=== PATIENT | female | born 1950 ===

== ENCOUNTER → 2023-07-06 10:54 | Outpatient (POV) | payer MEDICARE, OTHER, SELFPAY ==
--- NOTE | 2023-07-06 12:08 | EXP.PAIN.OV ---
HPI Data of Consult Patient: new to practice Consult date: 07/06/23 Requesting Physician: Mahi Haney APRN Primary Care Provider: Geraldo Lai APRN Consult Narrative Reason for consult: Acute shingles outbreak right lower abdomen and right flank History of present illness: Ms. Bull is a 73 year old female who presents today as a new patient. She is a referral from Geraldo Carranza's office. Today she rates her pain a 8 out of 10. Patient states her pain is all in and around her lower abdomen with radiating symptoms going around to her right flank. Patient states that she does have a current rash and did get diagnosed with shingles last . Patient states that she did have a burning sensation for a few days prior to the rash popping up. Patient states that she did see her primary care provider and they did prescribe her acyclovir along with prednisone. Patient states that she is finishing up the prednisone prescription and that she continues to have a burning/sharp sensation in and around where her rash is. She states it is sensitive to touch and that frequently clothing aggravates it. Patient does state the pain is interfering with her ability perform activities of daily living such as cooking and cleaning. Patient does also states she has a history of cancer and that currently they have seen a spot on her kidney and lung that they are monitoring. Her Carlos has been reviewed and is appropriate. CC: Mahi Haney APRN [facility] Disclaimer: The information contained in this section may have been updated after the patient was seen, as this information can be updated by other users. Social History Smoking Status: Unknown if ever smoked alcohol intake: never current occupational status: retired and other Travel in the last 8 weeks: None Review of Systems Review of Systems Review of systems:: pertinent systems reviewed and negative unless documented below Review of systems (narrative): Review of Systems: General: No recent weight changes, no fever, no sleep disturbances Respiratory: No cough, no shortness of air, no recurring pulmonary infections Cardiovascular/peripheral vascular: No chest pain, no palpitations, no edema, no shortness of breath Gastrointestinal: No new onset incontinence, normal bowel movements reported Genitourinary: No new onset incontinence Musculoskeletal: Right lower abdomen/right flank pain Neurological: [Denies weakness in extremities], [denies balance issues] Meds Home Medications and Allergies New Prescriptions to Start Prescriptions: Objective Narrative: Physical Exam: General: Alert and oriented x3, no acute distress, pleasant and cooperative Lungs: Respirations even and unlabored, symmetrical chest expansion Eyes: PERRL Musculoskeletal: Flexion and extension of lumbar [spine] somewhat guarded secondary to pain, [antalgic gait noted] diffuse rash noted at lower right abdomen and spreading across dermatome to right flank, tenderness with palpation Neurological: Speech clear, no gross sensory deficit Assessment and Plan *Assessment and plan (1) Acute pain associated with herpes zoster: Status: Acute Category: Medical Code(s): B02.9 - Zoster without complications Plan Patient is experiencing an acute shingles outbreak across her lower right abdomen and into her right flank with diffuse rash noted during today's exam. Patient did have tenderness upon palpation during today's visit. I have discussed with the patient that she may benefit from trigger point injections at the areas of her rash. Risk and benefits were discussed with the patient and she would like to proceed forward with this plan of care. I have also discussed with the patient that she may benefit from a low-dose gabapentin to help with the nerve pain. At this time the patient would like to wait on adding oral medications due to her history of cancer. I have counseled her that she can call between now and her next visit if she decides otherwise and we can send in a 2-week supply of gabapentin 100 mg 3 times daily as needed. I have also discussed with patient that she may benefit from compounded cream however she is wanting to wait on this as well. Patient will be scheduled for trigger point injections of her right lower abdomen and right flank. \ Patient has been instructed to contact the clinic with any concerns before the next appointment. Dr. Anderson has reviewed this note and agrees with this plan of care. This note was dictated using voice recognition software and make contain errors or omissions.
[2023-07-06 12:16] VITALS: BP 167/90; PULSE 61; RESP 18; O2SAT 97; BMI 26.0
== END ==
PROVIDERS: PCP Nurse Practitioner Family; Visit Provider Nurse Practitioner Family
DX: B02.23 Postherpetic polyneuropathy
CPT/HCPCS: 99202; G0463